=== PATIENT | male | born 1955 | race Caucasian/White ===

== ENCOUNTER 2016-09-19 15:08 | Inpatient (IN) | payer OTHER ==
[~2016-09-19] VITALS: Ht 179.1 cm; Wt 67.7 kg
[2016-09-19 13:44] LABS: BASOPHIL COUNT 0.1 K/uL (0-0.1); EOSINOPHIL (%) 5.9 % (0-5); EOSINOPHIL COUNT 0.6 K/uL (0-0.3); HEMATOCRIT 20.6 % (38.0-50.0); IMMATURE GRANULOCYTE (%) 0.3 % (0.0-0.7); INSTRUMENT ABS NEUTROPHIL CT 6.4 K/uL; LYMPHOCYTE COUNT 1.9 K/uL (1.0-2.8); MCH 31.8 PG (29.0-34.0); MCHC 32.5 G/DL (30.0-36.0); MCV 97.6 FL (86-99); MEAN PLAT.VOLUME 8.7 uM^3 (9.0-12.4); NEUTROPHIL (%) 64.3 % (45-76); NEUTROPHIL COUNT 6.4 K/uL (1.8-6.4); PLATELET COUNT 573 K/uL (156-360); RBC DIS.WIDTH-CV 13.6 % (11.8-14.6); RBC DIS.WIDTH-SD 48.7 % (39-53); RED BLOOD COUNT 2.11 M/uL (4.00-5.50); WHITE BLOOD COUNT 9.9 K/uL (4.1-10.2)
[2016-09-19 16:23] LABS: CHLORIDE 94 mEq/L (99-109); SODIUM 131 mEq/L (136-147)
[2016-09-19 16:24] LABS: GLUCOSE 101 mg/dL (70-99)
[2016-09-19 16:26] LABS: ANION GAP 11 MEQ/L (2-14)
[2016-09-19 16:28] LABS: GFR ESTIMATE (CALCULATED) > 59 mL/min/
[2016-09-19 16:29] LABS: UREA NITROGEN (BUN) 10 mg/dL (9-23)
[2016-09-19 16:43] LABS: POTASSIUM 3.9 mEq/L (3.7-5.4)
[2016-09-19 17:00] LABS: INTER. NORMALIZED RATIO 1.1; PROTHROMBIN TIME 10.7 (9.2-11.2); PTT 29.9 (25-32)
[2016-09-19 17:31] LABS: HEMATOCRIT 20.8 % (38.0-50.0); MCV 94.1 FL (86-99)
[2016-09-19] MEDS ORDERED: AMOX TR-K CLV1 EAC4 PO (18:13)
[2016-09-19] MEDS ORDERED: HYDROCHLOROTHIA25 MG PO (18:13)
[2016-09-19] MEDS ORDERED: AMLODIPINE BESY10 MG PO (18:14)
[2016-09-19] MEDS ORDERED: RAMIPRIL10 MG PO (18:14)
[2016-09-19] MEDS ORDERED: SIMVASTATIN20 MG PO (18:14)
[2016-09-19] MEDS ORDERED: BYSTOLIC10 MG PO ×2 (18:14→18:15)
[2016-09-19 22:34] VITALS: BP 124/60
[2016-09-19 22:40] VITALS: BP 133/61
[2016-09-20] VITALS (8 sets, daily range): BP systolic 109–156; BP diastolic 55–72
[2016-09-20 02:12] LABS: HEMATOCRIT 24.4 % (38.0-50.0); MCV 90.7 FL (86-99)
[2016-09-20 03:20] LABS: IRON 73 MCG/DL (35-150)
[2016-09-20 06:34] LABS: HEMATOCRIT 23.6 % (38.0-50.0); MCH 30.4 PG (29.0-34.0); MCHC 33.1 G/DL (30.0-36.0); MCV 91.8 FL (86-99); MEAN PLAT.VOLUME 8.4 uM^3 (9.0-12.4); PLATELET COUNT 486 K/uL (156-360); RBC DIS.WIDTH-CV 14.4 % (11.8-14.6); RBC DIS.WIDTH-SD 48.4 % (39-53); WHITE BLOOD COUNT 10.6 K/uL (4.1-10.2)
[2016-09-20 06:41] LABS: RED BLOOD COUNT 2.57 M/uL (4.00-5.50)
[2016-09-20 07:03] LABS: ANION GAP 4 MEQ/L (2-14); CHLORIDE 100 MEQ/L (99-109); GFR ESTIMATE (CALCULATED) > 59 mL/min/; GLUCOSE 94 mg/dL (70-99); POTASSIUM 4.2 MEQ/L (3.7-5.4); SAMPLE HEMOLYSIS CHECK 0; SAMPLE ICTERIC CHECK 0; SAMPLE LIPEMIA CHECK 0; SODIUM 135 MEQ/L (136-147); UREA NITROGEN (BUN) 6 mg/dL (9-23)
[2016-09-20 08:10] LABS: FERRITIN 9 NG/ML (22-322)
[2016-09-20 15:06] LABS: HEMATOCRIT 26.9 % (38.0-50.0); MCV 92.8 FL (86-99)
[2016-09-21 00:15] VITALS: BP 146/66
[2016-09-21 02:32] LABS: HEMATOCRIT 28.2 % (38.0-50.0); MCH 30.3 PG (29.0-34.0); MCHC 33.3 G/DL (30.0-36.0); MEAN PLAT.VOLUME 8.6 uM^3 (9.0-12.4); PLATELET COUNT 469 K/uL (156-360); RBC DIS.WIDTH-CV 14.5 % (11.8-14.6); RBC DIS.WIDTH-SD 47.7 % (39-53); WHITE BLOOD COUNT 12.6 K/uL (4.1-10.2)
[2016-09-21 04:00] VITALS: BP 150/68
[2016-09-21 07:49] VITALS: BP 134/72
[2016-09-21 15:17] LABS: HEMATOCRIT 27.4 % (38.0-50.0); MCH 30.6 PG (29.0-34.0); MCHC 32.8 G/DL (30.0-36.0); MCV 93.2 FL (86-99); MEAN PLAT.VOLUME 8.2 uM^3 (9.0-12.4); PLATELET COUNT 486 K/uL (156-360); RBC DIS.WIDTH-CV 14.5 % (11.8-14.6); RBC DIS.WIDTH-SD 49.5 % (39-53); RED BLOOD COUNT 2.94 M/uL (4.00-5.50); WHITE BLOOD COUNT 9.7 K/uL (4.1-10.2)
[2016-09-21 16:09] VITALS: BP 151/78
[2016-09-22 00:53] VITALS: BP 126/59
[2016-09-22 06:40] LABS: HEMATOCRIT 27.6 % (38.0-50.0); MCH 29.9 PG (29.0-34.0); MCHC 32.2 G/DL (30.0-36.0); MCV 92.6 FL (86-99); MEAN PLAT.VOLUME 8.5 uM^3 (9.0-12.4); PLATELET COUNT 506 K/uL (156-360); RBC DIS.WIDTH-CV 14.1 % (11.8-14.6); RBC DIS.WIDTH-SD 48.1 % (39-53); RED BLOOD COUNT 2.98 M/uL (4.00-5.50); WHITE BLOOD COUNT 8.1 K/uL (4.1-10.2)
[2016-09-22 07:16] LABS: ANION GAP 7 MEQ/L (2-14); CHLORIDE 100 MEQ/L (99-109); GFR ESTIMATE (CALCULATED) > 59 mL/min/; GLUCOSE 99 mg/dL (70-99); POTASSIUM 3.6 MEQ/L (3.7-5.4); SAMPLE HEMOLYSIS CHECK 0; SAMPLE ICTERIC CHECK 0; SAMPLE LIPEMIA CHECK 0; SODIUM 134 MEQ/L (136-147); UREA NITROGEN (BUN) 3 mg/dL (9-23)
[2016-09-22 08:16] VITALS: BP 143/67
[2016-09-22] MEDS ORDERED: SUCRALFATE1 GM/10 ML PO (10:32)
[2016-09-22] MEDS ORDERED: PANTOPRAZOLE SO40 MG PO (10:33)
[2016-09-25 12:11] LABS: CHLAMYDIA TRACHOMATIS NEGATIVE; NEISSERIA GONORRHOEAE NEGATIVE
== END 2016-09-22 13:55 | disposition home or self-care (01) | DRG 378 ==
LOC: EME 15:08 → EDOF 17:08 → 5EAST 17:08
PROVIDERS: Emergency Medicine; Family Medicine; Internal Medicine; Specialist
PROC: 0W3P8ZZ Control Bleeding in Gastrointestinal Tract, Via Natural or Artificial Opening Endoscopic (ICD-10-PCS; principal; 2016-09-19)
DX: K29.01 Acute gastritis with bleeding (principal); D62 Acute posthemorrhagic anemia; E87.1 Hypo-osmolality and hyponatremia; I10 Essential (primary) hypertension; E78.5 Hyperlipidemia, unspecified; F17.200 Nicotine dependence, unspecified, uncomplicated; K92.1 Melena; M19.90 Unspecified osteoarthritis, unspecified site; R01.1 Cardiac murmur, unspecified; R63.4 Abnormal weight loss; Z68.21 Body mass index [BMI] 21.0-21.9, adult; Z79.82 Long term (current) use of aspirin
CPT/HCPCS: 36415; 71010; 80048; 82728; 83540; 84466; 85014; 85018; 85025; 85027; 85610; 85730; 86900; 86901; 86920; 87491; 87591; 99281; 99285; C9113; J2250; J3010; J7030; P9016

== ENCOUNTER 2016-12-19 11:38 | Emergency (ER) | payer OTHER ==
[~2016-12-19] VITALS: Ht 177.8 cm; Wt 49.7 kg
[~2016-12-19 11:38] MED LIST: AMLODIPINE BESY10 MG PO; AMOX TR-K CLV1 EAC4 PO; BYSTOLIC10 MG PO; HYDROCHLOROTHIA25 MG PO; PANTOPRAZOLE SO40 MG PO; RAMIPRIL10 MG PO; SIMVASTATIN20 MG PO; SUCRALFATE1 GM/10 ML PO
[2016-12-19 12:26] LABS: HEMATOCRIT 22.8 % (38.0-50.0); MCHC 33.3 G/DL (30.0-36.0); MEAN PLAT.VOLUME 8.6 uM^3 (9.0-12.4); RBC DIS.WIDTH-CV 18.9 % (11.8-14.6); RBC DIS.WIDTH-SD 55.2 % (39-53); RED BLOOD COUNT 2.82 M/uL (4.00-5.50); WHITE BLOOD COUNT 2.7 K/uL (4.1-10.2)
[2016-12-19 12:31] LABS: MCV 80.9 FL (86-99); PLATELET COUNT 289 K/uL (156-360)
[2016-12-19 12:43] LABS: CHLORIDE 96 mEq/L (99-109); POTASSIUM 4.4 mEq/L (3.7-5.4); SODIUM 131 mEq/L (136-147)
[2016-12-19 12:45] LABS: GLUCOSE 111 mg/dL (70-99)
[2016-12-19 12:46] LABS: ANION GAP 13 MEQ/L (2-14)
[2016-12-19 12:47] LABS: TOTAL BILIRUBIN 0.3 mg/dL (0.0-1.0)
[2016-12-19 12:49] LABS: ALKALINE PHOSPHATASE 176 IU/L (3-129); GFR ESTIMATE (CALCULATED) > 59 mL/min/
[2016-12-19 12:50] LABS: UREA NITROGEN (BUN) 15 mg/dL (9-23)
[2016-12-19 12:52] LABS: LIPASE 6 U/L (1.0-51.0)
[2016-12-19] MEDS ORDERED: DILAUDID4 MG PO (14:02)
[2016-12-19 14:25] VITALS: BP 114/74
== END 2016-12-19 14:25 | disposition home or self-care (01) ==
LOC: EME 11:38
PROVIDERS: Emergency Medicine
DX: E86.0 Dehydration (principal); R10.84 Generalized abdominal pain; C25.9 Malignant neoplasm of pancreas, unspecified; Z92.21 Personal history of antineoplastic chemotherapy; F17.200 Nicotine dependence, unspecified, uncomplicated; E78.5 Hyperlipidemia, unspecified; I10 Essential (primary) hypertension
CPT/HCPCS: 80053; 81003; 83690; 85027; 99281; 99284; J1170; J2270; J2405; J7030

== ENCOUNTER 2016-12-23 16:02 | Emergency (ER) | payer OTHER ==
[~2016-12-23] VITALS: Ht 170.2 cm; Wt 53.7 kg
[~2016-12-23 16:02] MED LIST changes: +DILAUDID4 MG PO
[2016-12-23 17:51] LABS: EOSINOPHIL (%) 2.1 % (0-5); EOSINOPHIL COUNT 0.1 K/uL (0-0.3); HEMATOCRIT 22.6 % (38.0-50.0); IMMATURE GRANULOCYTE (%) 0.8 % (0.0-0.7); IMMATURE GRANULOCYTE COUNT 0.1 K/uL; INSTRUMENT ABS NEUTROPHIL CT 4.4 K/uL; LYMPHOCYTE COUNT 0.8 K/uL (1.0-2.8); MCH 27.9 PG (29.0-34.0); MCHC 33.6 G/DL (30.0-36.0); MCV 83.1 FL (86-99); MONOCYTE (%) 14.6 % (3-12); MONOCYTE COUNT 0.9 K/uL (0-0.8); NEUTROPHIL COUNT 4.4 K/uL (1.8-6.4); PLATELET COUNT 365 K/uL (156-360); RBC DIS.WIDTH-CV 19.7 % (11.8-14.6); RED BLOOD COUNT 2.72 M/uL (4.00-5.50); WHITE BLOOD COUNT 6.3 K/uL (4.1-10.2)
[2016-12-23 18:02] LABS: CHLORIDE 94 mEq/L (99-109); POTASSIUM 4.3 mEq/L (3.7-5.4); SODIUM 129 mEq/L (136-147)
[2016-12-23 18:05] LABS: GLUCOSE 98 mg/dL (70-99)
[2016-12-23 18:06] LABS: ANION GAP 11 MEQ/L (2-14)
[2016-12-23 18:08] LABS: ALKALINE PHOSPHATASE 196 IU/L (3-129); GFR ESTIMATE (CALCULATED) > 59 mL/min/
[2016-12-23 18:09] LABS: UREA NITROGEN (BUN) 12 mg/dL (9-23)
[2016-12-23 18:12] LABS: LIPASE 10 U/L (1.0-51.0); TROP-I INTERPRETATION NEGATIVE; TROPONIN-I < 0.01 ng/mL (0.0-0.30)
[2016-12-23 18:15] LABS: TOTAL BILIRUBIN 0.2 mg/dL (0.0-1.0)
[2016-12-23 19:20] LABS: ADD MIUA? NO; BILIRUBIN NEGATIVE; BLOOD NEGATIVE; COLOR STRAW ((YELLOW)); GLUCOSE (STRIP) NEGATIVE; KETONES NEGATIVE; LEUKOCYTES NEGATIVE; NITRITE NEGATIVE; PROTEIN (STRIP) NEGATIVE; SPECIFIC GRAVITY 1.006 (1.000-1.030); UROBILINOGEN 0.2 MG/DL (0.2-1.0)
[2016-12-23 20:07] LABS: UCUL ADDED? NO
[2016-12-23 20:54] VITALS: BP 120/61
== END 2016-12-23 20:55 | disposition home or self-care (01) ==
LOC: EME 16:02
PROVIDERS: Emergency Medicine
DX: E86.0 Dehydration (principal); E87.1 Hypo-osmolality and hyponatremia; C25.9 Malignant neoplasm of pancreas, unspecified; I10 Essential (primary) hypertension; E78.5 Hyperlipidemia, unspecified; F17.200 Nicotine dependence, unspecified, uncomplicated
CPT/HCPCS: 71020; 80053; 81003; 83690; 84484; 85025; 99281; 99285; J1170; J7030; J7050